=== PATIENT | female | born 1980 | race African-American/Black ===

== ENCOUNTER 2018-10-25 08:14 | Emergency (ER) | payer OTHER ==
[2018-10-25 08:33] VITALS: TEMP 98.4; BMI 38.2
[2018-10-25] MEDS ORDERED: ACETAMINOPHEN 1000 MG/100 ML VIAL (NON FORMULARY) IVPB ONE (08:56)
[2018-10-25] MEDS ORDERED: SODIUM CHLORIDE 1,000 ML IV STA (08:56)
--- NOTE | 2018-10-25 08:56 | PDOC ---
History of Present Illness - General Chief Complaint: Pain Stated Complaint: NECK / BACK PAIN Time Seen by Provider: 10/25/18 08:43 History Source: Patient Exam Limitations: No Limitations Past History - Travel Traveled outside of the country in the last 30 days: No Close contact w/someone who was outside of country & ill: No - Past Medical History Allergies/Adverse Reactions: Allergies Allergy/AdvReac Type Severity Reaction Status Date / Time No Known Drug Allergies Allergy Verified 10/25/18 08:30 Home Medications: Ambulatory Orders Ibuprofen [Motrin] 600 mg PO TID PRN 01/05/12 Cetirizine HCl [Zyrtec -] 10 mg PO DAILY 10/26/15 Fluticasone Prop 0.05% Nasal [Flonase -] 1 - 2 spray NS DAILY 10/26/15 Cephalexin Monohydrate [Keflex -] 500 mg PO BID #14 capsule 10/25/18 Cyclobenzaprine HCl [Flexeril -] 10 mg PO HS #10 tablet 10/25/18 Ibuprofen 600 mg PO Q6H #30 tablet 10/25/18 Anemia: No Asthma: No Cancer: No Cardiac Disorders: No CVA: No COPD: No CHF: No Dementia: No Diabetes: No GI Disorders: No Disorders: No HTN: No Hypercholesterolemia: Yes Liver Disease: No Seizures: No Thyroid Disease: No - Surgical History Abdominal Surgery: Yes (UMBILICAL HERNIA REPAIR) Appendectomy: No Cardiac Surgery: No Cholecystectomy: No Lung Surgery: No Neurologic Surgery: No Orthopedic Surgery: No - Suicide/Smoking/Psychosocial Hx Smoking History: Never smoked Have you smoked in the past 12 months: No If you are a former smoker, when did you quit?: 1998 Information on smoking cessation initiated: No Hx Alcohol Use: No Drug/Substance Use Hx: No Substance Use Type: Alcohol Hx Substance Use Treatment: No Review of Systems - Review of Systems Able to Perform ROS?: Yes Comments:: 10/25/18 09:14 CONSTITUTIONAL: Absent: fever, chills, diaphoresis, generalized weakness, malaise, loss of appetite HEENT: Present: neck pain Absent: rhinorrhea, nasal congestion, throat pain, throat swelling, difficulty swallowing, mouth swelling, ear pain, eye pain, visual Changes CARDIOVASCULAR: Present: chest heavieness Absent: loss of consciousness, palpitations, irregular heart rate, peripheral edema RESPIRATORY: Absent: cough, shortness of breath, dyspnea with exertion, orthopnea, wheezing, stridor, hemoptysis GASTROINTESTINAL: Absent: abdominal pain, abdominal distension, nausea, vomiting, diarrhea, constipation, melena, hematochezia GENITOURINARY: Absent: dysuria, frequency, urgency, hesitancy, hematuria, flank pain, genital pain MUSCULOSKELETAL: Absent: myalgia, arthralgia, joint swelling SKIN: Absent: rash, itching, pallor HEMATOLOGIC/IMMUNOLOGIC: Absent: easy bleeding, easy bruising, lymphadenopathy, frequent infections ENDOCRINE: Absent: unexplained weight gain, unexplained weight loss, heat intolerance, cold intolerance NEUROLOGIC: Absent: headache, focal weakness or paresthesias, dizziness, unsteady gait, seizure, mental status changes, bladder or bowel incontinence PSYCHIATRIC: Absent: anxiety, depression, suicidal or homicidal ideation, hallucinations. Is the patient limited Swedish proficient: No *Physical Exam - Vital Signs Last Vital Signs Temp Pulse Resp BP Pulse Ox 98.4 F 79 18 129/69 98 10/25/18 08:31 10/25/18 08:31 10/25/18 08:31 10/25/18 08:31 10/25/18 08:31 - Physical Exam Comments: 10/25/18 09:19 GENERAL: Well developed, well nourished. Awake and alert. No acute distress. HEENT: Normocephalic, atraumatic. PERRLA, EOMI. No conjunctival pallor. Sclera are non- icteric. Moist mucous membranes. Oropharynx is clear. NECK: Supple. Full ROM. No JVD. Carotid pulses 2+ and symmetric, without bruits. No thyromegaly. No lymphadenopathy. CARDIOVASCULAR: Regular rate and rhythm. No murmurs, rubs, or gallops. Distal pulses are 2+ and symmetric. PULMONARY: No evidence of respiratory distress. Lungs clear to auscultation bilaterally. No wheezing, rales or rhonchi. ABDOMINAL: Soft. Non-tender. Non-distended. No rebound or guarding. No organomegaly. Normoactive bowel sounds. MUSCULOSKELETAL Normal range of motion at all joints. No bony deformities or tenderness. No CVA tenderness. EXTREMITIES: No cyanosis. No clubbing. No edema. No calf tenderness. SKIN: Warm and dry. Normal capillary refill. No rashes. No jaundice. NEUROLOGICAL: Alert, awake, appropriate. Cranial nerves 2-12 intact. No deficits to light touch and temperature in face, upper extremities and lower extremities. No motor deficits in the in face, upper extremities and lower extremities. Normoreflexic in the upper and lower extremities. Normal speech. Toes are down- going bilaterally. Gait is normal without ataxia. PSYCHIATRIC: Cooperative. Good eye contact. Appropriate mood and affect. ED Treatment Course - LABORATORY CBC & Chemistry Diagram: 10/25/18 09:26 10/25/18 09:26 Medical Decision Making - Medical Decision Making 10/25/18 09:19 The patient is a 37 y/o with PMH of HLD presents to the ER with three days neck and one day of chest tightness. She states that the pain started in her neck and moved down to her lower back. This morning she noted chest pain that woke her from sleep. Nothing makes the chest pain better or worse and it is not reproducible. Denies fevers, chills, SOB, SOB on exertion, palpitations, lightheadedness, n/v/d, recent travel, OC use, smoking. A/P: back pain with chest pain On exam; pt with no reproducible chest or neck pain. Lungs CTAB with (-) w/r/r. Heart S1S2, (-) m/r/g EKG: Rate: 75 BPM NSR. Normal intervals and axis. Inverted T waves in III, flattened in V4, V5 DDx: PE, ACS, MSK pain Labs, IV, Meds, CTA chest and dopplers ordered Re-evaluate 10/25/18 15:43 CTA negative for PE Doppler negative for DVT Chest pain free at this time Second Troponin negative; unlikely ACS Suspect MSK pathology Given abnormal EKG, will refer to cardiology [place] home with symptomatic relief I discussed the physical exam findings, ancillary test results and final diagnoses with the patient. I answered all of the patient's questions. The patient was satisfied with the care received and felt comfortable with the discharge plan and treatment plan. The Patient agrees to follow up with the primary care physician/specialist within 24-72 hours. Return precautions were given. *DC/Admit/Observation/Transfer Diagnosis at time of Disposition: Neck pain, Atypical chest pain - Discharge Dispostion Disposition: HOME Condition at time of disposition: Stable Decision to Admit order: No - Referrals Referrals: Aldo Reed MD [Staff Physician] - - Patient Instructions Printed Discharge Instructions: DI for Neck Pain, DI for Atypical Chest Pain Additional Instructions: You were evaluated for your chest pain and neck pain today You do not have a blood clot in the lungs or legs Your EKG was abnormal; please follow with cardiology this week. A referral has been provided to you. Take the flexeril at night before bed to help with the pain. Do not drink or drive after taking the medication as it may make you drowsy. Take Motrin 600mg every 6 hours for the pain not to exceed 3,000mg a day Warm compresses to the area may be helpful Return to the ER for worsening pain, fever, lightheadedness or dizziness. - Post Discharge Activity Forms/Work/School Notes: Back to Work
--- NOTE | 2018-10-25 09:04 | PDOC ---
*Physical Exam - Vital Signs Last Vital Signs Temp Pulse Resp BP Pulse Ox 98.4 F 79 18 129/69 98 10/25/18 08:31 10/25/18 08:31 10/25/18 08:31 10/25/18 08:31 10/25/18 08:31 - Physical Exam Comments: 10/25/18 09:03 The patient was examined by [VARSHA David] under my direct supervision. I personally evaluated the patient. I concur with the above findings and the plan of care. ED Treatment Course - LABORATORY CBC & Chemistry Diagram: 10/25/18 09:26 10/25/18 09:26 *DC/Admit/Observation/Transfer Diagnosis at time of Disposition: Neck pain, Atypical chest pain - Discharge Dispostion Disposition: HOME Condition at time of disposition: Stable - Prescriptions Prescriptions: Cephalexin Monohydrate [Keflex -] 500 mg PO BID #14 capsule Cyclobenzaprine HCl [Flexeril -] 10 mg PO HS #10 tablet Ibuprofen 600 mg PO Q6H #30 tablet - Referrals Referrals: Aldo Reed MD [Staff Physician] - - Patient Instructions Printed Discharge Instructions: DI for Atypical Chest Pain, DI for Neck Pain Additional Instructions: You were evaluated for your chest pain and neck pain today You do not have a blood clot in the lungs or legs Your EKG was abnormal; please follow with cardiology this week. A referral has been provided to you. Take the flexeril at night before bed to help with the pain. Do not drink or drive after taking the medication as it may make you drowsy. Take Motrin 600mg every 6 hours for the pain not to exceed 3,000mg a day Warm compresses to the area may be helpful Return to the ER for worsening pain, fever, lightheadedness or dizziness. - Post Discharge Activity Forms/Work/School Notes: Back to Work
[2018-10-25 09:46] LABS: BASO % 1.3 % (0-2.0); EOS % 3.6 % (0-4.5); HEMATOCRIT 35.8 % (32.4-45.2); HEMOGLOBIN 11.6 GM/dL (10.7-15.3); LYMPH % 33.1 % (8-40); MCH 27.1 pg (25.7-33.7); MCHC 32.5 g/dl (32.0-36.0); MEAN CELL VOLUME 83.4 fl (80-96); MEAN PLT VOLUME 9.1 fl (7.5-11.1); MONO % 12.7 % (3.8-10.2); NEUT % 49.3 % (42.8-82.8); PLATELET COUNT 224 K/MM3 (134-434); RBC 4.29 M/mm3 (3.60-5.2); RDW 13.9 % (11.6-15.6); WHITE BLOOD COUNT 4.6 K/mm3 (4.0-10.0)
[2018-10-25] MEDS ORDERED: ACETAMINOPHEN INJECTION 100 ML IVPB ONE (09:47)
[2018-10-25 09:48] LABS: EPI CELLS 18.6 /HPF (0-5/HPF); HYALINE CASTS 8 /lpf (0-8); URINE APPEARANCE CLOUDY; URINE BILIRUBIN NEGATIVE (NEGATIVE); URINE COLOR YELLOW; URINE GLUCOSE (UA) NEGATIVE (NEGATIVE); URINE KETONE NEGATIVE (NEGATIVE); URINE LEUK ESTERASE TRACE (NEGATIVE); URINE NITRITE NEGATIVE (NEGATIVE); URINE PROTEIN NEGATIVE (NEGATIVE); URINE RBC 1 /hpf (0-4); URINE UROBILINOGEN 0.2 mg/dL (0.2-1.0); URINE WBC 13 /hpf (0-5)
[2018-10-25 10:04] LABS: INR 1.03 (0.83-1.09); PROTHROMBIN TIME (PATIENT) 12.1 SEC (9.7-13.0)
[2018-10-25 10:07] LABS: ALBUMIN 3.9 g/dl (3.4-5.0); BILIRUBIN,TOTAL 0.4 mg/dL (0.2-1); CALCIUM 9.3 mg/dL (8.5-10.1); CREATININE 0.8 mg/dL (0.55-1.3); POTASSIUM 4.1 mmol/L (3.5-5.1)
--- NOTE | 2018-10-25 15:09 | EKG ---
Test Reason : Blood Pressure : / mmHG Vent. Rate : 075 BPM Atrial Rate : 075 BPM P-R Int : 134 ms QRS Dur : 082 ms QT Int : 390 ms P-R-T Axes : 033 -01 001 degrees QTc Int : 435 ms POOR DATA QUALITY, INTERPRETATION MAY BE ADVERSELY AFFECTED NORMAL SINUS RHYTHM ANTERIOR INJURY PATTERN ABNORMAL ECG NO PREVIOUS ECGS AVAILABLE Confirmed by MANAS PEREZ MD ([id number]) on 10/25/2018 3:08:43 PM Referred By: Confirmed By:MANAS PEREZ MD
[2018-10-25 16:52] VITALS: BP 117/72; PULSE 74
== END 2018-10-25 16:51 | disposition home or self-care (01) ==
LOC: JER 08:14
PROC: 3E033NZ Introduction of Analgesics, Hypnotics, Sedatives into Peripheral Vein, Percutaneous Approach (ICD-10-PCS; principal; 2018-10-25)
DX: R07.89 Other chest pain (principal); M54.2 Cervicalgia
CPT/HCPCS: 36415; 71275-TC; 80053; 81003; 82550; 84484; 84703; 85025; 85610; 87077; 87086; 93005; 93010; 93970-TC; 99283-25; J0131; J7030